=== PATIENT | female | born 1945 | race Caucasian/White ===

== ENCOUNTER → 2024-07-23 | Outpatient (CLI) | payer MEDICARE ==
[~2024-07-23] MED LIST: IOHEXOL 350 MG/ML 100ML IJ ONE
[2024-07-23 09:52] VITALS: BP 133/73; PULSE 91; RESP 20; O2SAT 94
[2024-07-23 10:27] VITALS: BP 136/73; PULSE 101; RESP 20; O2SAT 94
--- NOTE | 2024-07-23 16:01 | DVH ---
Procedure: CT ANGIO AORTIC ABDOMINAL HISTORY: AAA Comparison Study: None Exam Date:07/23/2024 10:14 AM TECHNIQUE: CTA scanner volumetric data acquisition of abdomen and pelvis was obtained following intravenous admi nistration of intravenous contrast without any reported adverse effects. Axial images were reconstruc sierra and additional sagittal and coronal images were reformatted. Arterial phase imaging were performe d. Postprocessing was also performed on a separate workstation. 3 D images were performed on a dedicated workstation and reviewed for reporting. CONTRAST: Type of contrast: Omni 350 Contrast injected: 100 ml Radiation dose : CT Dose: CTDI volume is 23 mGy. Dose-length product is 254 mGy*cm FINDINGS: Vascular: Aortic measurements: aortic hiatus 24 mm, suprarenal abdominal aorta 21 mm and infrarenal aorta 41 m m. There is tortuosity of the infrarenal abdominal aorta with aneurysmal dilation and [id number] m ural thrombus. 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 The me senteric and bilateral renal arteries are patent without any hemodynamically significant stenosis. 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 External iliac dudley joan are patent. Lung Bases: Emphysematous changes in the visualized lung bases. Liver: The liver is normal in size. No focal lesions. Normal hepatic vascular enhancement. Gallbladder and biliary Tree: Unremarkable Spleen: Calcified granuloma. Pancreas: The pancreas is normal in appearance without focal lesions or abnormal enhancement. Adrenal Glands: Unremarkable Kidneys: Kidneys demonstrate normal symmetric enhancement without focal lesions, calculi or hydroneph rosis. Bladder: Unremarkable Bowel: The stomach is grossly normal in appearance. Small bowel and colon are normal in caliber and d istribution. Normal appendix is visualized in the right lower quadrant without findings of appendici tis. Sigmoid diverticulosis. Ascites: Absent Lymphadenopathy: No mesenteric, retroperitoneal or periportal lymphadenopathy. Abdominal wall and Mesentery: Unremarkable. Pelvic Organs: Unremarkable Musculoskeletal: No aggressive focal bony lesions, acute fractures or dislocation. IMPRESSION: 1. Tortuosity of the infrarenal abdominal aorta with an aneurysm measuring up to 41 mm and mild-to-mo derate mural thrombus. 2. 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 Moderate to high-grade stenos es of the bilateral common iliac arteries. 3. Vascular surgery evaluation is recommended. 4. Smoking-related lung disease. Sigmoid diverticulosis. HS:Y
== END | disposition home or self-care (01) ==
LOC: Rad HDHVI 09:38
PROVIDERS: ATTEND Internal Medicine Cardiovascular Disease
DX: I71.43 Infrarenal abdominal aortic aneurysm, without rupture (principal); K57.30 Diverticulosis of large intestine without perforation or abscess without bleeding; D73.89 Other diseases of spleen; I21.9 Acute myocardial infarction, unspecified; I77.4 Celiac artery compression syndrome; I70.8 Atherosclerosis of other arteries; J43.9 Emphysema, unspecified; J98.4 Other disorders of lung
CPT/HCPCS: 74175; G0463; Q9967

== ENCOUNTER → 2024-07-29 | Outpatient (CLI) | payer MEDICARE | END | disposition home or self-care (01) | LOC: Rad HDHVI 10:00 | PROVIDERS: ATTEND Internal Medicine Cardiovascular Disease | DX: R94.31 Abnormal electrocardiogram [ECG] [EKG] (principal); I10 Essential (primary) hypertension | CPT/HCPCS: 93306 ==

== ENCOUNTER → 2024-08-03 | Outpatient (CLI) | payer MEDICARE ==
[~2024-08-03] VITALS: Ht 171.4 cm; Wt 55.8 kg
[~2024-08-03] MED LIST changes: +ADENOSINE 47 MG in GIVE UN-DILUTED 0 ML IV ONE; +ADENOSINE 90 MG/30 ML INJ IV ONE; -IOHEXOL 350 MG/ML 100ML IJ ONE
== END | disposition home or self-care (01) ==
LOC: Rad HDHVI 10:06
PROVIDERS: ATTEND Internal Medicine Cardiovascular Disease
DX: Z01.810 Encounter for preprocedural cardiovascular examination (principal); I25.10 Atherosclerotic heart disease of native coronary artery without angina pectoris; R73.03 Prediabetes; J44.9 Chronic obstructive pulmonary disease, unspecified; R94.31 Abnormal electrocardiogram [ECG] [EKG]; I71.40 Abdominal aortic aneurysm, without rupture, unspecified; I12.9 Hypertensive chronic kidney disease with stage 1 through stage 4 chronic kidney disease, or unspecified chronic kidney disease; N18.9 Chronic kidney disease, unspecified; E78.00 Pure hypercholesterolemia, unspecified; Z82.49 Family history of ischemic heart disease and other diseases of the circulatory system
CPT/HCPCS: 78452; 93005; A9500; J0153; 96374; 96375